=== PATIENT | female | born 1965 | race African-American/Black ===

== ENCOUNTER 2018-02-15 21:10 | Inpatient (IN) | payer BC ==
[2018-02-15 22:04] LABS: ADD MAN DIFF? NO
[2018-02-15] MEDS: ASPIRIN CHEWABLE 81 MG TABLET. PO (22:04)
[2018-02-15] MEDS: NITROGLYCERIN OINT 1 GM PACKET. TP (22:05)
[2018-02-15 22:06] LABS: BASO % 0 % (0-3); EOS # 0.4 x10^3/uL (0.0-0.7); EOS % 5 % (0-3); HEMATOCRIT 38.2 % (36.0-47.0); HEMOGLOBIN 12.7 g/dL (12.0-15.5); LYMPH # 3.1 x10^3/uL (1.0-4.8); LYMPH % 38 % (24-48); MEAN CORPUSCULAR HEMOGLOBIN 29 pg (25-35); MEAN CORPUSCULAR HGB CONC 33 g/dL (31-37); MEAN CORPUSCULAR VOLUME 89 fL (79-100); MONO # 0.6 x10^3/uL (0.0-1.1); MONO % 8 % (0-9); NEUT # 3.9 x10^3uL (1.8-7.7); NEUT % 49 % (31-73); PLATELET COUNT 228 x10^3/uL (140-400); RED BLOOD COUNT 4.31 x10^6/uL (3.50-5.40); RED CELL DISTRIBUTION WIDTH 14.7 % (11.5-14.5)
[2018-02-15 22:16] LABS: ANION GAP 10 (6-14); BLOOD UREA NITROGEN 14 mg/dL (7-20); BUN/CREATININE RATIO 14 (6-20); CALCIUM 8.5 mg/dL (8.5-10.1); CARBON DIOXIDE 28 mmol/L (21-32); CHLORIDE 105 mmol/L (98-107); GFR 70.5; GLUCOSE 109 mg/dL (70-99); POTASSIUM 3.6 mmol/L (3.5-5.1); SODIUM 143 mmol/L (136-145)
[2018-02-15 22:21] LABS: ALBUMIN 3.1 g/dL (3.4-5.0); ALBUMIN/GLOBULIN RATIO 0.7 (1.0-1.7); ALK PHOS 88 U/L (46-116); ALT (SGPT) 17 U/L (14-59); AST (SGOT) 11 U/L (15-37); LIPASE 135 U/L (73-393); TOTAL BILIRUBIN 0.3 mg/dL (0.2-1.0); TOTAL PROTEIN 7.3 g/dL (6.4-8.2)
[2018-02-15 22:23] LABS: TROPONINI < 0.017 ng/mL (0.000-0.055)
[2018-02-15 22:24] LABS: D-DIMER 0.32 ug/mlFEU (0.00-0.50)
[2018-02-15 22:31] LABS: NT-PRO BNP 38 pg/mL (0-124)
[2018-02-15 22:31] LABS: CKMB INDEX 0.5 % (0-4); CKMB MASS 0.5 ng/mL (0.0-3.6); CREATINE KINASE 102 U/L (26-192)
[2018-02-15] MEDS ORDERED: MORPHINE SULFATE 4 MG/ML DISP.SYRIN. IV (22:45)
[2018-02-15] MEDS ORDERED: ONDANSETRON PF 4 MG/2 ML VIAL. IV (22:45)
[2018-02-16] MEDS: ACETAMINOPHEN 325 MG TABLET. PO ×2 (01:35→11:18)
[2018-02-16 02:23] LABS: TROPONINI < 0.017 ng/mL (0.000-0.055)
[2018-02-16 05:26] LABS: TROPONINI < 0.017 ng/mL (0.000-0.055)
[2018-02-16 05:54] LABS: CHOLESTEROL 191 mg/dL (0-200); HDLC 66 mg/dL (40-60); LDLC 115 mg/dL (0-100); NON-HDL CHOLESTEROL 125 mg/dL (0-129); TRIGLYCERIDES 49 mg/dL (0-150); VLDLC 10 mg/dL (0-40)
[2018-02-16 05:59] LABS: CHOLESTEROL/HDL RATIO 2.9
[2018-02-16] MEDS: NITROGLYCERIN OINT 1 GM PACKET. TP ×3 (06:00→20:50)
[2018-02-16] MEDS: FAMOTIDINE 20 MG TABLET. PO (20:50)
[2018-02-17] MEDS: NITROGLYCERIN OINT 1 GM PACKET. TP (06:00)
[2018-02-17 06:04] LABS: ADD MAN DIFF? NO
[2018-02-17 06:11] LABS: BASO % 1 % (0-3); EOS # 0.4 x10^3/uL (0.0-0.7); EOS % 7 % (0-3); HEMATOCRIT 38.3 % (36.0-47.0); HEMOGLOBIN 12.6 g/dL (12.0-15.5); LYMPH # 2.5 x10^3/uL (1.0-4.8); LYMPH % 40 % (24-48); MEAN CORPUSCULAR HEMOGLOBIN 29 pg (25-35); MEAN CORPUSCULAR HGB CONC 33 g/dL (31-37); MEAN CORPUSCULAR VOLUME 89 fL (79-100); MONO # 0.6 x10^3/uL (0.0-1.1); MONO % 9 % (0-9); NEUT # 2.8 x10^3uL (1.8-7.7); NEUT % 44 % (31-73); PLATELET COUNT 217 x10^3/uL (140-400); RED BLOOD COUNT 4.33 x10^6/uL (3.50-5.40); WHITE BLOOD COUNT 6.3 x10^3/uL (4.0-11.0)
[2018-02-17 06:28] LABS: ANION GAP 4 (6-14); BLOOD UREA NITROGEN 14 mg/dL (7-20); CALCIUM 9.1 mg/dL (8.5-10.1); CARBON DIOXIDE 31 mmol/L (21-32); CHLORIDE 108 mmol/L (98-107); CREATININE 0.9 mg/dL (0.6-1.0); GFR 79.6; GLUCOSE 99 mg/dL (70-99); POTASSIUM 4.1 mmol/L (3.5-5.1); SODIUM 143 mmol/L (136-145)
== END 2018-02-17 12:20 | disposition home or self-care (01) | DRG 313 ==
LOC: ER 21:10 → 6 SOUTH 22:30
DX: R07.89 Other chest pain (principal); E66.01 Morbid (severe) obesity due to excess calories; Z68.41 Body mass index [BMI] 40.0-44.9, adult; E78.5 Hyperlipidemia, unspecified; F41.9 Anxiety disorder, unspecified; G47.30 Sleep apnea, unspecified; Z82.49 Family history of ischemic heart disease and other diseases of the circulatory system; K21.9 Gastro-esophageal reflux disease without esophagitis; Z90.49 Acquired absence of other specified parts of digestive tract
CPT/HCPCS: 36415; 71045; 80048; 80053; 80061; 82553; 83690; 83880; 84484; 85025; 85379; 93005; 93017; 93350; 99285; 99285-25

== ENCOUNTER 2019-10-07 11:11 | Emergency (ER) | payer SELFPAY ==
[~2019-10-07] VITALS: Ht 165.1 cm; Wt 111.1 kg
[~2019-10-07 11:11] MED LIST: DM/P295L2 PO; ERGO50007 PO; GUAI600T47 PO; IBUP200C PO; MECL25TA3 PO; PHEN240L PO; SERT100T PO; SERT100T8 PO
[2019-10-07 11:48] VITALS: BP 13/73
--- NOTE | 2019-10-07 12:11 | PHYS DOC ---
Past Medical History Past Medical History: No Pertinent History, Anxiety Past Surgical History: Cholecystectomy Additional Past Surgical Histo: HERNIA Alcohol Use: None Drug Use: None Adult General Chief Complaint Chief Complaint: FLU SYMPTOM HPI HPI Patient is a 54 year old Female who presents with 1 week of cough, nasal congestion, fever, sore throat. Patient states she's been taking DayQuil and NyQuil. Patient states she's also had been body aches. She denies any nausea vomiting or diarrhea, chest pain, shortness of breath. Review of Systems Review of Systems Constitutional: fever or chills [] HENT: nasal congestion or sore throat [] Respiratory: cough or denies shortness of breath [] Musculoskeletal: Bodyaches. Denies back pain or joint pain [] All other systems were reviewed and found to be within normal limits, except as documented in this note. Allergies Allergies Allergies Coded Allergies Type Severity Reaction Last Updated Verified No Known Drug Allergies 10/08/13 No Physical Exam Physical Exam Constitutional: Well developed, well nourished, no acute distress, non-toxic appearance. [] HENT: Normocephalic, atraumatic, bilateral external ears normal, oropharynx moist, throat reddened and no oral exudates, nose normal/ congestion. [] Eyes: PERRLA, EOMI, conjunctiva normal, no discharge. [] Neck: Normal range of motion, no tenderness, supple, no stridor. [] Cardiovascular:Heart rate regular rhythm, no murmur [] Lungs & Thorax: Bilateral breath sounds clear to auscultation [] Abdomen: Bowel sounds normal, soft, no tenderness, no masses, no pulsatile masses. [] Skin: Warm, dry, no erythema, no rash. [] Back: No tenderness, no CVA tenderness. [] Extremities: No tenderness, no cyanosis, no clubbing, ROM intact, no edema. [] Neurologic: Alert and oriented X 3, normal motor function, normal sensory function, no focal deficits noted. [] Psychologic: Affect normal, judgement normal, mood normal. [] Current Patient Data Vital Signs Vital Signs Date Time Temp Pulse Resp B/P (MAP) Pulse Ox O2 Delivery O2 Flow Rate FiO2 10/07/19 11:48 98.6 93 20 13/73 (53) 97 Room Air 98.6 Lab Values Laboratory Tests Test 10/07/19 12:10 Influenza Type A Antigen Negative (NEGATIVE) Influenza Type B Antigen Negative (NEGATIVE) EKG EKG [] Radiology/Procedures Radiology/Procedures [] Course & Med Decision Making Course & Med Decision Making Ambulatory with a steady gait. Speaks in full clear sentences. Vital signs withi n normal limits. Afebrile. Skin pink warm and dry. Mucous membranes are moist. Patient states she is eating and drinking appropriately but her appetite is somewhat decreased due to not feeling well. Denies abdominal pain, dizziness, headache, chest pain, shortness of breath, weakness, visual changes. Throat is reddened but there is no swelling or exudates. Bilateral Tympanic pearly white. PERRLA. Lungs are clear to auscultation all lobes. Rates her overall discomfort a 7 out of 10. Negative Influenza. Negative Strep. Dragon Disclaimer Dragon Disclaimer This electronic medical record was generated, in whole or in part, using a voice recognition dictation system. Departure Departure Impression: Primary Impression: Cough Additional Impressions: Fever Nasal congestion Disposition: 01 HOME, SELF-CARE Condition: STABLE Referrals: UNKNOWN PCP NAME (PCP) Patient Instructions: Cough, Adult Additional Instructions: Follow up with your primary care doctor. Take medications as prescribed. Scripts Azithromycin (AZITHROMYCIN TABLET) 250 Mg Tablet 1 PKG PO UD for 5 Days, #6 TAB 0 Refills 2 the first day followed by 1 for days 2-5 Prov: LUCY BOOTH APRN 10/07/19 Benzonatate (TESSALON PERLE) 100 Mg Capsule 1 CAP PO TID, #30 CAP Prov: LUCY BOOTH APRN 10/07/19 Problem Qualifiers Additional Impressions: Fever Fever type: unspecified Qualified Codes: R50.9 - Fever, unspecified LUCY BOOTH APRN Oct 07, 2019 12:11
[2019-10-07 12:49] LABS: INFLUENZA A PATIENT NEGATIVE (NEGATIVE); INFLUENZA B PATIENT NEGATIVE (NEGATIVE)
[2019-10-07] MEDS ORDERED: AZIT250T6 PO (13:22)
[2019-10-07] MEDS ORDERED: BENZ100C PO (13:22)
== END 2019-10-07 13:28 | disposition home or self-care (01) ==
LOC: ER 11:11
DX: R05 Cough (principal); R50.9 Fever, unspecified; R09.81 Nasal congestion; F41.9 Anxiety disorder, unspecified; Z90.49 Acquired absence of other specified parts of digestive tract
CPT/HCPCS: 87070; 87804; 87880; 99284

== ENCOUNTER 2020-12-30 00:15 | Emergency (ER) | payer BC ==
[~2020-12-30] VITALS: Ht 165.1 cm; Wt 111.0 kg
[~2020-12-30 00:15] MED LIST changes: +AZIT250T6 PO; +BENZ100C PO; +MECL-75 PO; -MECL25TA3 PO; +SERT-268 PO; -SERT100T8 PO
[2020-12-30] MEDS ORDERED: FLUORESCEIN OPHTH TEST STRIP. OD ONE (03:45)
[2020-12-30] MEDS ORDERED: TETRACAINE 0.5% OPHTH SOLUTION 4ML BOTTLE. OD ONE (03:45)
--- NOTE | 2020-12-30 03:50 | PHYS DOC ---
Past Medical History Past Medical History: Anxiety Past Surgical History: Cholecystectomy Additional Past Surgical Histo: HERNIA Smoking Status: Never Smoker Alcohol Use: None Drug Use: None General Adult EDM: Chief Complaint: EYE PROBLEMS HPI: HPI: Patient is a 55 year old female with no past medical history presents with chief complaint of right eye pain. Patient states she has had pain in right eye for approximately 2 week. Patient has been evaluated by her scheduling assistant and was placed on eye drop steroid and antibiotics. Patient states steriod eyedrop treatment was prescribed for 2 weeks ending as a taper that finished on Tuesday. Patient states since finishing steroid eyedrop pain has intensified. Patient denies any visual change. She states she has had some eye drainage. Patient does wears corrective reading glass but does not wear contact lens. Patient denies any eye trauma. No associated headache. She states she has had itch and drainage of her eye. Review of Systems: Review of Systems: Constitutional: Denies fever or chills. [] Eyes: Denies change in visual acuity. [postive eye pain] HENT: Denies nasal congestion or sore throat. [] Respiratory: Denies cough or shortness of breath. [] Cardiovascular: Denies chest pain or edema. [] GI: Denies abdominal pain, nausea, vomiting, bloody stools or diarrhea. [] : Denies dysuria. [] Musculoskeletal: Denies back pain or joint pain. [] Integument: Denies rash. [] Neurologic: Denies headache, focal weakness or sensory changes. [] Endocrine: Denies polyuria or polydipsia. [] Lymphatic: Denies swollen glands. [] Psychiatric: Denies depression or anxiety. [] Heart Score: Risk Factors: Risk Factors: DM, Current or recent (<one month) smoker, HTN, HLP, family history of CAD, obesity. Risk Scores: Score 0 - 3: 2.5% MACE over next 6 weeks - Discharge Home Score 4 - 6: 20.3% MACE over next 6 weeks - Admit for Clinical Observation Score 7 - 10: 72.7% MACE over next 6 weeks - Early Invasive Strategies Current Medications: Current Medications Medications (Trade) Dose Ordered Sig/Pepito Start Time Stop Time Status Last Admin Dose Admin Fluorescein Sodium (Ful-Shena) 1 strip 1X ONCE 12/30/20 03:45 12/30/20 03:46 Tetracaine HCl (Tetracaine) 1 drop 1X ONCE 12/30/20 03:45 12/30/20 03:46 Allergies: Allergies: Allergies Coded Allergies Type Severity Reaction Last Updated Verified No Known Drug Allergies 10/08/13 No Physical Exam: PE: Constitutional: Well developed, well nourished, no acute distress, non-toxic appearance. [] HENT: Normocephalic, atraumatic, bilateral external ears normal, oropharynx moist, no oral exudates, nose normal. [] Eyes: PERRLA, EOMI, injected conjunctiva right, teary eye discharge right. [no tenderness right taoism, ] fluorescein dye uptake 11-12-1 o'clock position, upper and lower lids inverted- no FB identified. occular pressures right 17,19, 12 Neck: Normal range of motion, no tenderness, supple, no stridor. [] Cardiovascular:Heart rate regular rhythm, no murmur [] Lungs & Thorax: Bilateral breath sounds clear to auscultation [] Abdomen: Bowel sounds normal, soft, no tenderness, no masses, no pulsatile masses. [] Skin: Warm, dry, no erythema, no rash. [] Back: No tenderness, no CVA tenderness. [] Extremities: No tenderness, no cyanosis, no clubbing, ROM intact, no edema. [] Neurologic: Alert and oriented X 3, normal motor function, normal sensory function, no focal deficits noted. [] Psychologic: Affect normal, judgement normal, mood normal. [] Current Patient Data: Vital Signs: Vital Signs Date Time Temp Pulse Resp B/P (MAP) Pulse Ox O2 Delivery O2 Flow Rate FiO2 12/30/20 02:51 98.3 66 16 145/82 (103) 100 Room Air 98.3 EKG: EKG: [] Radiology/Procedures: Radiology/Procedures: [] Course & Med Decision Making: Course & Med Decision Making Pertinent Labs and Imaging studies reviewed. (See chart for details) [] Dragon Disclaimer: Dragon Disclaimer: This electronic medical record was generated, in whole or in part, using a voice recognition dictation system. Departure Departure Impression: Primary Impression: Eye discomfort Additional Impression: Iritis Disposition: 01 DC HOME SELF CARE/HOMELESS Condition: STABLE Referrals: UNKNOWN PCP NAME (PCP) Patient Instructions: Iritis Scripts Acetaminophen With Codeine (ACETAMINOPHEN-COD #3 TABLET) 1 Each Tablet 1 TAB PO PRN Q4HRS PRN for PAIN, #20 TAB Prov: CONSTANTIN LAUREANO DO 12/30/20 Polymyxin B Sulf/Trimethoprim (POLYMYXIN B-TMP EYE DROPS) 10 Ml Drops 1 DROP EACHEYE TID for 7 Days, #10 ML 0 Refills Prov: CONSTANTIN LAUREANO DO 12/30/20 CONSTANTIN LAUREANO DO Dec 30, 2020 03:50
[2020-12-30] MEDS ORDERED: ACET1TAB33 PO (04:58)
[2020-12-30] MEDS ORDERED: POLY10DR3 EACHEYE (04:58)
[2020-12-30] MEDS ORDERED: ACETAMINOPHEN/CODEINE 300/30MG TABLET. PO ONE (05:00)
[2020-12-30 05:08] VITALS: BP 145/84
== END 2020-12-30 05:12 | disposition home or self-care (01) ==
LOC: ER 00:15
DX: H57.11 Ocular pain, right eye (principal); H20.9 Unspecified iridocyclitis; F41.9 Anxiety disorder, unspecified; Z90.49 Acquired absence of other specified parts of digestive tract; Z98.890 Other specified postprocedural states
CPT/HCPCS: 99283